=== PATIENT | male | born 1985 | race African-American/Black ===

== ENCOUNTER 2017-02-09 12:11 | Emergency (ER) | payer MEDICAID, OTHER ==
[~2017-02-09] VITALS: Ht 165.1 cm; Wt 96.0 kg
[2017-02-09] MEDS ORDERED: METOCLOPRAMIDE HCL 10MG TABLET PO ONE (14:45)
[2017-02-09] MEDS ORDERED: KETOROLAC 60MG/2ML VIAL IM ONE (14:45)
[2017-02-09 15:06] VITALS: BP 134/71
== END 2017-02-09 17:08 | disposition home or self-care (01) ==
LOC: ER 14:36
DX: R51 Headache (principal); F17.200 Nicotine dependence, unspecified, uncomplicated; K08.89 Other specified disorders of teeth and supporting structures
CPT/HCPCS: 96372; 99283; J1885; J8597